=== PATIENT | female | born 1990 | race American Indian/Alaskan Native ===

== ENCOUNTER 2019-06-03 13:31 | Emergency (ER) | payer SELFPAY ==
--- NOTE | 2019-06-03 14:19 | Event Note ---
ED Screening Note Date of service: 06/03/19 Time: 14:16 ED Screening Note: 29 y o female presents with pain to left big toe s/p fall and trip off stairs pain with applied pressure This initial assessment/diagnostic orders/clinical plan/treatment(s) is/are subject to change based on patients health status, clinical progression and re- assessment by fellow clinical providers in the ED. Further treatment and workup at subsequent clinical providers discretion. Patient/guardian urged not to elope from the ED as their condition may be serious if not clinically assessed and managed. Initial orders include: xr
--- NOTE | 2019-06-03 15:18 | XRay Report ---
LEFT TOES 3 VIEWS INDICATION / CLINICAL INFORMATION: left big toe pain COMPARISON: None available. FINDINGS: BONES / JOINT(S): There is a nondisplaced fracture proximal lateral aspect of the great toe distal ph alanx. No significant arthritis. SOFT TISSUES: No significant abnormality. ADDITIONAL FINDINGS: None. Signer Name: Oskar Robin MD Signed: 06/03/2019 3:13 PM Workstation Name: [id number]
[2019-06-03] MEDS ORDERED: IBUPROFEN 800 MG TAB PO ONE (15:36)
--- NOTE | 2019-06-03 15:38 | Emergency Department Report ---
ED Lower Extremity HPI - General Chief Complaint: Fall Stated Complaint: FALL Time Seen by Provider: 06/03/19 15:34 Source: patient Mode of arrival: Ambulatory Limitations: No Limitations - History of Present Illness Initial Comments: 29 yo fell at home today injuring her great toe. She is ambulatory with limp. No other injury - Related Data Previous Rx's Medication Instructions Recorded Last Taken Type Ibuprofen [Motrin] 800 mg PO Q8HR PRN #30 tablet 06/03/19 Unknown Rx ED Review of Systems ROS: Stated complaint: FALL Other details as noted in HPI Comment: All other systems reviewed and negative ED Past Medical Hx - Past Medical History Previous Medical History?: No - Surgical History Past Surgical History?: No - Family History Family history: no significant - Social History Smoking Status: Never Smoker Substance Use Type: None - Medications Home Medications: Home Medications Medication Instructions Recorded Confirmed Last Taken Type Ibuprofen [Motrin] 800 mg PO Q8HR PRN #30 tablet 06/03/19 Unknown Rx ED Physical Exam - General Limitations: No Limitations General appearance: alert, in no apparent distress - Head Head exam: Present: atraumatic, normocephalic - Eye Eye exam: Present: normal appearance - ENT ENT exam: Present: mucous membranes moist - Neck Neck exam: Present: normal inspection - Respiratory Respiratory exam: Present: normal lung sounds bilaterally. Absent: respiratory distress - Cardiovascular Cardiovascular Exam: Present: regular rate, normal rhythm. Absent: systolic murmur, diastolic murmur, rubs, gallop - GI/Abdominal GI/Abdominal exam: Present: soft, normal bowel sounds - Extremities Exam Extremities exam: Present: normal inspection - Back Exam Back exam: Present: normal inspection - Neurological Exam Neurological exam: Present: alert, oriented X3 - Psychiatric Psychiatric exam: Present: normal affect, normal mood - Skin Skin exam: Present: warm, dry, intact, normal color. Absent: rash ED Course Vital Signs 06/03/19 13:58 Temperature 98.2 F Pulse Rate 77 Respiratory 16 Rate Blood Pressure 108/70 O2 Sat by Pulse 98 Oximetry ED Lower Extremity MDM - Radiology Data Radiology results: report reviewed, image reviewed - Medical Decision Making fx ortho shoe crutches non weight bearing dc home with ortho follow up Vital Signs 06/03/19 13:58 Temperature 98.2 F Pulse Rate 77 Respiratory 16 Rate Blood Pressure 108/70 O2 Sat by Pulse 98 Oximetry - Differential Diagnosis ro fx Critical care attestation.: If time is entered above; I have spent that time in minutes in the direct care of this critically ill patient, excluding procedure time. ED Disposition Clinical Impression: Toe fracture Disposition: TO HOME OR SELFCARE Is pt being admited?: No Does the pt Need Aspirin: No Condition: Stable Instructions: Toe Fracture (ED) Additional Instructions: ICE REST ELEVATE MOTRIN OR TYLENOL FOR PAIN CRUTCHES TO KEEP WEIGHT OFF FOOT FOLLOW UP WITH DR RODRIGUES- ORTHO REFERRAL BELOW Prescriptions: Ibuprofen [Motrin] 800 mg PO Q8HR PRN #30 tablet PRN Reason: Pain, Moderate (4-6) Referrals: JOSE ANGEL RODRIGUES MD [Staff Physician] - 3-5 Days Time of Disposition: 15:37
[2019-06-03 17:12] VITALS: BP 110/70
== END 2019-06-03 16:48 | disposition home or self-care (01) ==
LOC: ED 13:31
DX: S92.415A Nondisplaced fracture of proximal phalanx of left great toe, initial encounter for closed fracture (principal); Z79.899 Other long term (current) drug therapy; W10.8XXA Fall (on) (from) other stairs and steps, initial encounter; Y93.89 Activity, other specified; Y92.89 Other specified places as the place of occurrence of the external cause; Y99.8 Other external cause status